=== PATIENT | female | born 1995 | race Caucasian/White ===

== ENCOUNTER 2017-08-19 02:19 | Emergency (ER) | payer BC ==
[2017-08-19 04:09] VITALS: BP 138/88
--- NOTE | 2017-08-19 04:11 | EDPHY ---
H & P Stated Complaint: took 10 vicodin+ alcohol- dizzy/nausea Time Seen by Provider: 08/19/17 02:36 HPI/ROS: HPI The patient presents with dizziness, nausea, stomach ache after ingesting multiple [place] tabs tonight. The patient has a history of insomnia and was concerned that she would have difficulty falling asleep tonight. Between 9:00 p.m. In midnight she took a total of 10 tabs of [place] 5/325 mg. She also drink a glass of wine at about 9:00 p.m.. She then was concerned about taking so much [place] and she told this to a roommate who called poison Control and she was instructed to come to the emergency department. The patient denies any suicidal ideation. She expresses that she is under a great deal of stress with her part-time job, heavy course load, and is currently taking Accutane. She is working on her sleep and had a sleep study performed recently which was inconclusive. She says that she sleeps about 4-5 hours a night. She says she is always tired during the day. She has no new medications though does admit to drinking a lot of coffee. She says she does take [place] tabs to help her sleep though usually only takes 1. REVIEW OF SYSTEMS Constitutional: No fever, no chills. Eyes: No discharge. ENT: No sore throat. Cardiovascular: No chest pain, no palpitations. Respiratory: No cough, no shortness of breath. Gastrointestinal: No abdominal pain, no vomiting. Genitourinary: No hematuria. Musculoskeletal: No back pain. Skin: No rashes. Neurological: No headache. PMHx: Asthma, depression, acne on Accutane Soc Hx: College student, works part-time job, here with multiple friends PHYSICAL General Appearance: Alert, tearful Eyes: Pupils equal and round no pallor or injection ENT, Mouth: Mucous membranes moist Respiratory: There are no retractions, lungs are clear to auscultation Cardiovascular: Regular rate and rhythm Gastrointestinal: Abdomen is soft and non-tender, no masses, bowel sounds normal Neurological: A&O, moves all extremities Skin: Warm and dry, no rashes Musculoskeletal: Neck is supple non tender Extremities: symmetrical, full range of motion Psychiatric: Patient is oriented X 3, there is no agitation Source: Patient Exam Limitations: No limitations - Personal History LMP (Females 10-55): 8-14 Days Ago Current Tetanus Diphtheria and Acellular Pertussis (TDAP): Yes - Medical/Surgical History Hx Asthma: No Hx Chronic Respiratory Disease: No Hx Diabetes: No Hx Cardiac Disease: No Hx Renal Disease: No Hx Cirrhosis: No Hx Alcoholism: No Hx HIV/AIDS: No Hx Splenectomy or Spleen Trauma: No Other PMH: depression, asthma - Social History Smoking Status: Never smoked Constitutional: Initial Vital Signs Temperature (C) 37.3 C 08/19/17 02:27 Heart Rate 124 H 08/19/17 02:27 Respiratory Rate 20 08/19/17 02:27 Blood Pressure 146/96 H 08/19/17 02:27 O2 Sat (%) 91 L 08/19/17 02:27 O2 Delivery Mode Room Air Allergies/Adverse Reactions: No Known Allergies Allergy (Unverified 08/19/17 02:25) Home Medications: Medication Instructions Recorded Albuterol 08/19/17 Effexor Xr 08/19/17 Medical Decision Making Differential Diagnosis: This is a 22-year-old female with history of depression, asthma who presents brought in by concerned friends after taking [place] 10 tabs of 5/325 mg over the course of 3 hr tonight in an effort to help her fall asleep. She denies any suicidal ideation. She now is complaining of nausea. On exam, she is slightly tachycardic, otherwise has normal vital signs and a normal physical exam. Differential diagnosis includes acetaminophen toxicity, [place] side-effect, anxiety attack, less likely suicidal ideation as she denies this. In the emergency department, we checked a 4 hr Tylenol level at 4:00 a.m.. This was within normal limits. LFTs were also normal. I feel she can safely be discharged home. She has good social support. - Data Points Laboratory Results: Laboratory Results 08/19/17 02:50 08/19/17 02:50 Sodium 144 mEq/L mEq/L (135-145) Potassium 4.2 mEq/L mEq/L (3.5-5.2) Chloride 106 mEq/L mEq/L (97-110) Carbon Dioxide 24 mEq/l mEq/l (22-31) Anion Gap 14 mEq/L mEq/L (8-16) BUN 8 mg/dL mg/dL (7-23) Creatinine 0.6 mg/dL mg/dL (0.6-1.0) Estimated GFR > 60 Glucose 106 mg/dL H mg/dL (70-100) Calcium 9.0 mg/dL mg/dL (8.5-10.4) Total Bilirubin 0.3 mg/dL mg/dL (0.1-1.4) AST 24 IU/L IU/L (14-46) ALT 36 IU/L IU/L (9-52) Alkaline Phosphatase 63 IU/L IU/L (38-126) Total Protein 7.3 g/dL g/dL (6.3-8.2) Albumin 4.2 g/dL g/dL (3.5-5.0) Acetaminophen 19 mcg/mL mcg/mL (10-30) Ethyl Alcohol < 10 mg/dL mg/dL (0-10) Departure - Departure Disposition: Home, Routine, Self-Care Clinical Impression: Nausea Medication overdose Qualifiers: Encounter type: initial encounter Injury intent: accidental or unintentional Qualified Code(s): T50.901A - Poisoning by unspecified drugs, medicaments and biological substances, accidental (unintentional), initial encounter Condition: Good Instructions: Adult Overdose (ED), Safe Use of Acetaminophen (ED) Additional Instructions: Please be careful about your medication. You should not take [place] to help you to sleep. You should follow up with your regular doctor to few days. Return to the emergency department if your worse in any way. Referrals: DEDE Carlson,. [Clinic] - As per Instructions
== END 2017-08-19 04:56 | disposition home or self-care (01) ==
DX: T40.2X1A Poisoning by other opioids, accidental (unintentional), initial encounter (principal); J45.909 Unspecified asthma, uncomplicated
CPT/HCPCS: G0480